=== PATIENT | male | born 1945 | race African-American/Black ===

== ENCOUNTER 2018-09-25 16:32 | Emergency (ER) | payer MEDICARE ==
[~2018-09-25] VITALS: Ht 167.6 cm; Wt 82.0 kg
[~2018-09-25 16:32] MED LIST: ACLI400A2 IH; ASPI-1079 PO; COR25 PO; FURO40TA5 PO; IPRA4AER IH; OMEP40CA34 PO; SPIR25TA6 PO
[2018-09-25 17:07] VITALS: BP 150/100
== END 2018-09-25 17:17 | disposition left against medical advice (07) ==
LOC: ER 16:32
DX: R06.02 Shortness of breath (principal); R00.0 Tachycardia, unspecified; J45.909 Unspecified asthma, uncomplicated; I11.0 Hypertensive heart disease with heart failure; I50.9 Heart failure, unspecified; E11.9 Type 2 diabetes mellitus without complications; Z79.82 Long term (current) use of aspirin; Z90.89 Acquired absence of other organs
CPT/HCPCS: 93005; 99283

== ENCOUNTER 2019-06-02 18:37 | Inpatient (IN) | payer MEDICARE ==
[~2019-06-02] VITALS: Ht 167.6 cm; Wt 68.5 kg
[~2019-06-02 18:37] MED LIST changes: -ACLI400A2 IH; +ACLI400A3 IH
[2019-06-02 20:39] LABS: CHLORIDE 105 mEq/L (98-107)
[2019-06-02 20:43] LABS: ETHANOL BLOOD < 10 mg/dL; HEMATOCRIT. 29.6 % (42.0-52.0); HEMOGLOBIN. 8.9 g/dL (14.0-18.0); MEAN CORPUSCULAR HEMOGLOBIN 19.9 pg (28.0-32.0); MEAN PLATELET VOLUME 9.5 fl (7.4-10.4); PLATELET 148 x1000/uL (130-400); RED BLOOD CELL COUNT 4.49 mill/uL (4.7-6.1); RED CELL DISTRIBUTION WIDTH 20.7 % (11.6-14.6)
[2019-06-02 20:48] LABS: CREATINE KINASE 621 IU/L (39-308)
[2019-06-02 21:56] LABS: PLATELET ESTIMATE NORMAL
[2019-06-02] MEDS ORDERED: KCL 20MEQ/100ML PREMIX 100 ML IV ONE (23:00)
[2019-06-02] MEDS ORDERED: ASPIRIN 325MG EC TABLET PO ONE (23:00)
[2019-06-02] MEDS ORDERED: POTASSIUM CHLORIDE 20MEQ TABLET SR PO ONE (23:00)
[2019-06-02 23:20] LABS: CLARITY URINE CLEAR (CLEAR); COLOR URINE YELLOW (YELLOW); KETONES URINE NEGATIVE (NEGATIVE); LEUKOCYTE ESTERASE URINE NEGATIVE (NEGATIVE); NITRITE URINE NEGATIVE (NEGATIVE); OCCULT BLOOD URINE NEGATIVE (NEGATIVE); PROTEIN URINE 1+ (NEGATIVE); SPECIFIC GRAVITY URINE 1.014 (1.005-1.030)
[2019-06-02 23:35] LABS: *AMPHETAMINES SCREEN URINE NEGATIVE (NEGATIVE); *BARBITURATES SCREEN URINE NEGATIVE (NEGATIVE); *BENZODIAZEPINES SCREEN URINE NEGATIVE (NEGATIVE); *COCAINE SCREEN URINE NEGATIVE (NEGATIVE); METHADONE URINE SCREEN NEGATIVE (NEGATIVE); OPIATES URINE SCREEN NEGATIVE (NEGATIVE); PHENCYCLIDINE URINE SCREEN NEGATIVE (NEGATIVE)
[2019-06-02 23:36] LABS: CANNABINOID URINE SCREEN NEGATIVE (NEGATIVE)
[2019-06-02] MEDS ORDERED: MAGNESIUM 2 G PREMIX 50 ML IV ONE (23:45)
[2019-06-03] MEDS ORDERED: HYDROCODONE/ACETAMINOPHEN 5/325MG TABLET PO PRN (00:45)
[2019-06-03] MEDS ORDERED: GUAIFENESIN 200MG/10ML SUGAR FREE UDC PO PRN (00:45)
[2019-06-03] MEDS ORDERED: ONDANSETRON HCL 4MG/2ML INJ IV PRN (00:45)
[2019-06-03] MEDS ORDERED: ACETAMINOPHEN 325MG TABLET PO PRN (00:45)
[2019-06-03] MEDS ORDERED: MAGNESIUM 2 G PREMIX 50 ML IV ONE (01:30)
[2019-06-03 02:30] VITALS: BP 155/100
[2019-06-03 04:00] VITALS: BP 128/83
[2019-06-03] MEDS ORDERED: DEXT 5%/0.45% NACL KCL 10MEQ/L 1,000 ML IV SCH (04:00)
[2019-06-03 08:00] VITALS: BP 149/97
[2019-06-03] MEDS: ASPIRIN 81MG EC TABLET PO SCH (09:01)
[2019-06-03] MEDS: AMLODIPINE 10MG TABLET PO SCH (09:02)
[2019-06-03] MEDS: LORAZEPAM 2MG/ML CPJ IV PRN ×2 (10:10→17:48)
[2019-06-03 12:00] VITALS: BP 155/75
[2019-06-03] MEDS ORDERED: FUROSEMIDE 40MG/4ML VIAL IVP SCH (14:15)
[2019-06-03 16:00] VITALS: BP 161/96
[2019-06-03] MEDS: CLONIDINE 0.1MG TABLET PO PRN (18:38)
[2019-06-03 19:03] LABS: HEMATOCRIT. 29.4 % (42.0-52.0); HEMOGLOBIN. 8.7 g/dL (14.0-18.0); MEAN CORPUSCULAR HEMOGLOBIN 19.5 pg (28.0-32.0); MEAN CORPUSCULAR VOLUME 65.6 fL (80.0-94.0); MEAN PLATELET VOLUME 9.6 fl (7.4-10.4); PLATELET 165 x1000/uL (130-400); RED BLOOD CELL COUNT 4.48 mill/uL (4.7-6.1); RED CELL DISTRIBUTION WIDTH 21.1 % (11.6-14.6)
[2019-06-03 19:20] LABS: CHLORIDE 109 mEq/L (98-107)
[2019-06-03 20:00] VITALS: BP 139/80
[2019-06-03] MEDS ORDERED: LACTULOSE 20G/30ML UDC PO NR (20:00)
[2019-06-03] MEDS ORDERED: POTASSIUM CHLORIDE 20MEQ TABLET SR PO NR (20:00)
[2019-06-03 20:10] LABS: PLATELET ESTIMATE NORMAL
[2019-06-03 21:25] LABS: HEPATITIS B SURFACE ANTIGEN NEGATIVE
[2019-06-03 21:55] LABS: HEPATITIS A AB IGM NEGATIVE (NEGATIVE)
[2019-06-03] MEDS: LOSARTAN POTASSIUM 25 MG TABLET PO SCH (22:37)
[2019-06-03] MEDS: CARVEDILOL 12.5MG TABLET PO SCH (22:38)
[2019-06-04] VITALS (7 sets, daily range): BP systolic 90–132; BP diastolic 48–81
[2019-06-04 07:39] LABS: CHLORIDE 114 mEq/L (98-107)
[2019-06-04 07:46] LABS: LDL CHOLESTEROL 50 mg/dL (5-100)
[2019-06-04 07:47] LABS: HDL CHOLESTEROL 38 mg/dL (40-59)
[2019-06-04] MEDS: LOSARTAN POTASSIUM 25 MG TABLET PO SCH (09:00)
[2019-06-04] MEDS: AMLODIPINE 10MG TABLET PO SCH (09:00)
[2019-06-04] MEDS: CARVEDILOL 12.5MG TABLET PO SCH ×2 (09:00→21:10)
[2019-06-04] MEDS: DOCUSATE SODIUM 250MG CAPSULE PO SCH (09:09)
[2019-06-04] MEDS: ASPIRIN 81MG EC TABLET PO SCH (09:09)
[2019-06-04] MEDS: FERROUS SULFATE 325MG TABLET PO SCH ×3 (09:09→18:10)
[2019-06-04 09:11] LABS: HEMATOCRIT. 29.9 % (42.0-52.0); HEMOGLOBIN. 8.6 g/dL (14.0-18.0); MEAN CORPUSCULAR HEMOGLOBIN 19.4 pg (28.0-32.0); MEAN CORPUSCULAR VOLUME 67.4 fL (80.0-94.0); MEAN PLATELET VOLUME 9.5 fl (7.4-10.4); RED BLOOD CELL COUNT 4.44 mill/uL (4.7-6.1); RED CELL DISTRIBUTION WIDTH 21.4 % (11.6-14.6)
[2019-06-04 09:12] LABS: PLATELET 134 x1000/uL (130-400)
[2019-06-04 12:21] LABS: PLATELET ESTIMATE NORMAL
[2019-06-04] MEDS: LORAZEPAM 2MG/ML CPJ IV PRN (21:09)
[2019-06-05] VITALS: BP 107/74
[2019-06-05] MEDS: LORAZEPAM 2MG/ML CPJ IV PRN (01:33)
[2019-06-05 04:00] VITALS: BP 123/87
[2019-06-05 08:00] VITALS: BP 158/54
[2019-06-05] MEDS: CARVEDILOL 12.5MG TABLET PO SCH ×2 (09:00→20:28)
[2019-06-05] MEDS: LOSARTAN POTASSIUM 25 MG TABLET PO SCH (09:00)
[2019-06-05] MEDS: AMLODIPINE 10MG TABLET PO SCH (09:00)
[2019-06-05] MEDS: ASPIRIN 81MG EC TABLET PO SCH (09:27)
[2019-06-05] MEDS: FERROUS SULFATE 325MG TABLET PO SCH ×3 (09:27→18:10)
[2019-06-05] MEDS: DOCUSATE SODIUM 250MG CAPSULE PO SCH (09:27)
[2019-06-05 12:00] VITALS: BP 124/83
[2019-06-05] MEDS: FUROSEMIDE 40MG/4ML VIAL IVP SCH ×2 (14:56→20:28)
[2019-06-05 16:00] VITALS: BP 129/85
[2019-06-05 20:00] VITALS: BP 121/80
[2019-06-06] VITALS: BP 131/72
[2019-06-06 04:00] VITALS: BP 130/68
[2019-06-06 07:12] LABS: BASOPHILS % 0.5 % (0.0-2.0); EOSINOPHILS % 2.1 % (0.0-5.0); HEMATOCRIT. 29.2 % (42.0-52.0); HEMOGLOBIN. 8.4 g/dL (14.0-18.0); LYMPHOCYTES % 42.4 % (20.0-50.0); MEAN CORPUSCULAR HEMOGLOBIN 19.4 pg (28.0-32.0); MEAN CORPUSCULAR VOLUME 67.2 fL (80.0-94.0); MEAN PLATELET VOLUME 9.6 fl (7.4-10.4); MONOCYTES % 7.5 % (2.0-8.0); NEUTROPHILS % 47.5 % (40.0-76.0); PLATELET 163 x1000/uL (130-400); RED BLOOD CELL COUNT 4.35 mill/uL (4.7-6.1); RED CELL DISTRIBUTION WIDTH 21.7 % (11.6-14.6)
[2019-06-06 07:39] LABS: CHLORIDE 113 mEq/L (98-107)
[2019-06-06 07:50] LABS: PHOSPHORUS 2.7 mg/dL (2.5-4.9)
[2019-06-06 08:00] VITALS: BP 168/86
[2019-06-06] MEDS: POTASSIUM CHLORIDE 20MEQ TABLET SR PO SCH (08:07)
[2019-06-06] MEDS: FUROSEMIDE 40MG/4ML VIAL IVP SCH ×2 (08:07→19:40)
[2019-06-06] MEDS: LOSARTAN POTASSIUM 25 MG TABLET PO SCH (08:07)
[2019-06-06] MEDS: ASPIRIN 81MG EC TABLET PO SCH (08:08)
[2019-06-06] MEDS: FERROUS SULFATE 325MG TABLET PO SCH ×3 (08:08→19:40)
[2019-06-06] MEDS: DOCUSATE SODIUM 250MG CAPSULE PO SCH (08:08)
[2019-06-06] MEDS: CLONIDINE 0.1MG TABLET PO PRN (08:51)
[2019-06-06] MEDS: AMLODIPINE 10MG TABLET PO SCH (08:51)
[2019-06-06] MEDS: CARVEDILOL 12.5MG TABLET PO SCH ×2 (08:51→21:00)
[2019-06-06 12:00] VITALS: BP 124/59
[2019-06-06 16:00] VITALS: BP 99/68
[2019-06-06 20:00] VITALS: BP 110/74
[2019-06-07] VITALS: BP 130/84
[2019-06-07 04:00] VITALS: BP 122/75
[2019-06-07] MEDS: FUROSEMIDE 40MG/4ML VIAL IVP SCH (06:36)
[2019-06-07 08:00] VITALS: BP 122/66
[2019-06-07] MEDS: FERROUS SULFATE 325MG TABLET PO SCH ×4 (08:10→18:10)
[2019-06-07] MEDS: ASPIRIN 81MG EC TABLET PO SCH (08:45)
[2019-06-07] MEDS: DOCUSATE SODIUM 250MG CAPSULE PO SCH (08:45)
[2019-06-07] MEDS: POTASSIUM CHLORIDE 20MEQ TABLET SR PO SCH (08:45)
[2019-06-07] MEDS: CARVEDILOL 12.5MG TABLET PO SCH ×2 (08:46→20:50)
[2019-06-07] MEDS: AMLODIPINE 10MG TABLET PO SCH (08:46)
[2019-06-07] MEDS: LOSARTAN POTASSIUM 25 MG TABLET PO SCH (09:00)
[2019-06-07 12:00] VITALS: BP_SYST 120; BP_SYST 122; BP_DIAS 66; BP_DIAS 67
[2019-06-07] MEDS: LORAZEPAM 2MG/ML CPJ IV PRN ×2 (12:37→19:33)
[2019-06-07] MEDS ORDERED: POTASSIUM CHLORIDE 20MEQ TABLET SR PO SCH (14:15)
[2019-06-07 20:00] VITALS: BP 109/69
[2019-06-08] MEDS: LORAZEPAM 2MG/ML CPJ IV PRN ×4 (04:15→21:34)
[2019-06-08 04:30] VITALS: BP 137/80
[2019-06-08 08:00] VITALS: BP 122/81
[2019-06-08] MEDS: FERROUS SULFATE 325MG TABLET PO SCH ×3 (08:10→17:17)
[2019-06-08] MEDS: DOCUSATE SODIUM 250MG CAPSULE PO SCH (08:34)
[2019-06-08] MEDS: CARVEDILOL 12.5MG TABLET PO SCH ×2 (08:34→21:33)
[2019-06-08] MEDS: FUROSEMIDE 40MG/4ML VIAL IVP SCH (08:34)
[2019-06-08] MEDS: LOSARTAN POTASSIUM 25 MG TABLET PO SCH (08:36)
[2019-06-08] MEDS: AMLODIPINE 10MG TABLET PO SCH (08:36)
[2019-06-08] MEDS: POTASSIUM CHLORIDE 20MEQ TABLET SR PO SCH (08:36)
[2019-06-08] MEDS: ASPIRIN 81MG EC TABLET PO SCH (08:36)
[2019-06-08 12:00] VITALS: BP 117/69
[2019-06-08] MEDS: RISPERIDONE 1MG TABLET PO SCH (14:00)
[2019-06-08 16:00] VITALS: BP 129/88
[2019-06-08 20:00] VITALS: BP 122/89
[2019-06-09] VITALS: BP 129/81
[2019-06-09] MEDS: LORAZEPAM 2MG/ML CPJ IV PRN ×2 (02:36→13:25)
[2019-06-09 04:00] VITALS: BP 123/76
[2019-06-09 08:00] VITALS: BP 117/76
[2019-06-09] MEDS: FERROUS SULFATE 325MG TABLET PO SCH ×3 (08:10→17:27)
[2019-06-09] MEDS: CARVEDILOL 12.5MG TABLET PO SCH ×2 (08:26→20:48)
[2019-06-09] MEDS: DOCUSATE SODIUM 250MG CAPSULE PO SCH (08:26)
[2019-06-09] MEDS: LOSARTAN POTASSIUM 50 MG TABLET PO SCH (08:27)
[2019-06-09] MEDS: RISPERIDONE 1MG TABLET PO SCH ×3 (08:27→16:39)
[2019-06-09] MEDS: ASPIRIN 81MG EC TABLET PO SCH (08:27)
[2019-06-09] MEDS: AMLODIPINE 10MG TABLET PO SCH (08:27)
[2019-06-09] MEDS: POTASSIUM CHLORIDE 20MEQ TABLET SR PO SCH (08:28)
[2019-06-09] MEDS: FUROSEMIDE 40MG/4ML VIAL IVP SCH (08:35)
[2019-06-09 12:30] VITALS: BP 133/87
[2019-06-09] MEDS ORDERED: POTASSIUM CHLORIDE 20MEQ TABLET SR PO SCH (13:30)
[2019-06-09] MEDS: MAGNESIUM GLUCONATE 500MG TABLET PO SCH (15:00)
[2019-06-09 16:00] VITALS: BP 127/82
[2019-06-09 20:00] VITALS: BP 115/63
[2019-06-09] MEDS: AMIODARONE HCL 200 MG TABLET PO SCH (20:49)
[2019-06-09 21:04] LABS: CHLORIDE 110 mEq/L (98-107)
[2019-06-09 21:07] LABS: HEMATOCRIT. 33.7 % (42.0-52.0); HEMOGLOBIN. 9.8 g/dL (14.0-18.0); MEAN CORPUSCULAR HEMOGLOBIN 19.9 pg (28.0-32.0); MEAN CORPUSCULAR VOLUME 68.2 fL (80.0-94.0); MEAN PLATELET VOLUME 9.9 fl (7.4-10.4); PLATELET 225 x1000/uL (130-400); RED BLOOD CELL COUNT 4.94 mill/uL (4.7-6.1); RED CELL DISTRIBUTION WIDTH 22.5 % (11.6-14.6)
[2019-06-09 21:33] LABS: NUCLEATED RED BLOOD CELLS 1 /100 WBC; PLATELET ESTIMATE NORMAL
[2019-06-10] VITALS: BP 114/66
[2019-06-10 04:00] VITALS: BP 102/63
[2019-06-10 08:00] VITALS: BP 103/68
[2019-06-10] MEDS: CARVEDILOL 12.5MG TABLET PO SCH ×2 (09:00→20:55)
[2019-06-10] MEDS: LOSARTAN POTASSIUM 50 MG TABLET PO SCH (09:00)
[2019-06-10] MEDS: AMLODIPINE 10MG TABLET PO SCH (09:00)
[2019-06-10] MEDS: MAGNESIUM GLUCONATE 500MG TABLET PO SCH (09:00)
[2019-06-10] MEDS: FUROSEMIDE 40MG/4ML VIAL IVP SCH (09:15)
[2019-06-10] MEDS: ASPIRIN 81MG EC TABLET PO SCH (09:15)
[2019-06-10] MEDS: RISPERIDONE 1MG TABLET PO SCH ×2 (09:15→17:45)
[2019-06-10] MEDS: DOCUSATE SODIUM 250MG CAPSULE PO SCH (09:15)
[2019-06-10] MEDS: FERROUS SULFATE 325MG TABLET PO SCH ×3 (09:15→17:45)
[2019-06-10] MEDS: POTASSIUM CHLORIDE 20MEQ TABLET SR PO SCH (09:16)
[2019-06-10] MEDS: AMIODARONE HCL 200 MG TABLET PO SCH ×2 (09:16→20:55)
[2019-06-10 12:00] VITALS: BP 103/56
[2019-06-10 16:00] VITALS: BP 129/80
[2019-06-10 20:00] VITALS: BP 112/78
[2019-06-11] VITALS: BP 101/63
[2019-06-11 04:00] VITALS: BP 97/53
[2019-06-11 08:00] VITALS: BP 103/69
[2019-06-11] MEDS: ASPIRIN 81MG EC TABLET PO SCH (08:47)
[2019-06-11] MEDS: RISPERIDONE 1MG TABLET PO SCH ×2 (08:47→17:42)
[2019-06-11] MEDS: DOCUSATE SODIUM 250MG CAPSULE PO SCH (08:47)
[2019-06-11] MEDS: POTASSIUM CHLORIDE 20MEQ TABLET SR PO SCH (08:47)
[2019-06-11] MEDS: FERROUS SULFATE 325MG TABLET PO SCH ×3 (08:47→17:42)
[2019-06-11] MEDS: FUROSEMIDE 40MG/4ML VIAL IVP SCH (08:47)
[2019-06-11] MEDS: AMIODARONE HCL 200 MG TABLET PO SCH ×2 (08:47→21:12)
[2019-06-11] MEDS: AMLODIPINE 10MG TABLET PO SCH (08:47)
[2019-06-11] MEDS: CARVEDILOL 12.5MG TABLET PO SCH ×2 (08:48→21:12)
[2019-06-11] MEDS: LOSARTAN POTASSIUM 50 MG TABLET PO SCH (08:48)
[2019-06-11] MEDS: MAGNESIUM GLUCONATE 500MG TABLET PO SCH (09:00)
[2019-06-11 12:00] VITALS: BP 128/73
[2019-06-11 16:00] VITALS: BP 153/84
[2019-06-11] MEDS: FOLIC ACID 1MG TABLET PO SCH (17:42)
[2019-06-11] MEDS: THIAMINE HCL 100MG TABLET PO SCH (17:42)
[2019-06-11] MEDS: MULTIVITAMINS,THER W-MINERALS TABLET PO SCH (17:42)
[2019-06-11 20:37] VITALS: BP 133/95
[2019-06-11 22:42] LABS: T4 FREE 1.31 ng/dL (0.76-1.46)
[2019-06-12 00:34] VITALS: BP 147/91
[2019-06-12 04:00] VITALS: BP 152/84
[2019-06-12 08:00] VITALS: BP 163/98
[2019-06-12] MEDS: FERROUS SULFATE 325MG TABLET PO SCH ×3 (08:10→17:22)
[2019-06-12] MEDS: CARVEDILOL 12.5MG TABLET PO SCH ×2 (09:00→21:56)
[2019-06-12] MEDS: RISPERIDONE 1MG TABLET PO SCH ×2 (09:00→17:00)
[2019-06-12] MEDS: MULTIVITAMINS,THER W-MINERALS TABLET PO SCH (09:00)
[2019-06-12] MEDS: POTASSIUM CHLORIDE 20MEQ TABLET SR PO SCH (09:00)
[2019-06-12] MEDS: AMIODARONE HCL 200 MG TABLET PO SCH ×2 (09:00→21:56)
[2019-06-12] MEDS: AMLODIPINE 10MG TABLET PO SCH (09:00)
[2019-06-12] MEDS: THIAMINE HCL 100MG TABLET PO SCH (09:00)
[2019-06-12] MEDS: LOSARTAN POTASSIUM 50 MG TABLET PO SCH (09:00)
[2019-06-12] MEDS: FOLIC ACID 1MG TABLET PO SCH (09:00)
[2019-06-12] MEDS: ASPIRIN 81MG EC TABLET PO SCH (09:00)
[2019-06-12] MEDS: DOCUSATE SODIUM 250MG CAPSULE PO SCH (09:00)
[2019-06-12] MEDS: FUROSEMIDE 40MG/4ML VIAL IVP SCH (09:34)
[2019-06-12 20:00] VITALS: BP 128/65
[2019-06-12] MEDS: LORAZEPAM 2MG/ML CPJ IV PRN (20:39)
[2019-06-13] VITALS: BP 107/73
[2019-06-13] MEDS: LORAZEPAM 2MG/ML CPJ IV PRN ×3 (01:17→16:13)
[2019-06-13 04:00] VITALS: BP 128/86
[2019-06-13] MEDS: LORAZEPAM 2MG/ML CPJ IM PRN ×2 (07:25→20:31)
[2019-06-13] MEDS: FERROUS SULFATE 325MG TABLET PO SCH ×3 (08:10→18:10)
[2019-06-13 08:15] VITALS: BP 124/84
[2019-06-13] MEDS: CARVEDILOL 12.5MG TABLET PO SCH ×2 (09:00→21:00)
[2019-06-13] MEDS: MULTIVITAMINS,THER W-MINERALS TABLET PO SCH (09:00)
[2019-06-13] MEDS: THIAMINE HCL 100MG TABLET PO SCH (09:00)
[2019-06-13] MEDS: FOLIC ACID 1MG TABLET PO SCH (09:00)
[2019-06-13] MEDS: MAGNESIUM GLUCONATE 500MG TABLET PO SCH (09:00)
[2019-06-13] MEDS: LOSARTAN POTASSIUM 50 MG TABLET PO SCH (09:00)
[2019-06-13] MEDS: POTASSIUM CHLORIDE 20MEQ TABLET SR PO SCH (09:00)
[2019-06-13] MEDS: DOCUSATE SODIUM 250MG CAPSULE PO SCH (09:00)
[2019-06-13] MEDS: FUROSEMIDE 40MG/4ML VIAL IVP SCH (09:00)
[2019-06-13] MEDS: RISPERIDONE 1MG TABLET PO SCH ×2 (09:00→17:00)
[2019-06-13] MEDS: AMIODARONE HCL 200 MG TABLET PO SCH ×2 (09:00→11:15)
[2019-06-13] MEDS: ASPIRIN 81MG EC TABLET PO SCH (09:00)
[2019-06-13] MEDS: AMLODIPINE 10MG TABLET PO SCH (09:00)
[2019-06-13 11:49] VITALS: BP 136/60
[2019-06-13 16:19] VITALS: BP 118/79
[2019-06-13 20:00] VITALS: BP 126/85
[2019-06-14] VITALS: BP 145/89
[2019-06-14 04:00] VITALS: BP 119/78
[2019-06-14] MEDS: LORAZEPAM 2MG/ML CPJ IM PRN ×2 (05:11→09:17)
[2019-06-14 07:58] VITALS: BP 121/78
[2019-06-14] MEDS: AMIODARONE HCL 200 MG TABLET PO SCH (08:49)
[2019-06-14] MEDS: FOLIC ACID 1MG TABLET PO SCH (08:49)
[2019-06-14] MEDS: DOCUSATE SODIUM 100MG CAPSULE PO PRN (08:49)
[2019-06-14] MEDS: RISPERIDONE 1MG TABLET PO SCH ×2 (08:49→18:44)
[2019-06-14] MEDS: LOSARTAN POTASSIUM 50 MG TABLET PO SCH (08:50)
[2019-06-14] MEDS: POTASSIUM CHLORIDE 20MEQ TABLET SR PO SCH (08:50)
[2019-06-14] MEDS: FUROSEMIDE 40MG/4ML VIAL IVP SCH (08:50)
[2019-06-14] MEDS: MULTIVITAMINS,THER W-MINERALS TABLET PO SCH (08:50)
[2019-06-14] MEDS: MAGNESIUM GLUCONATE 500MG TABLET PO SCH ×3 (08:50→08:53)
[2019-06-14] MEDS: ASPIRIN 81MG EC TABLET PO SCH (08:50)
[2019-06-14] MEDS: FERROUS SULFATE 325MG TABLET PO SCH ×3 (08:50→18:44)
[2019-06-14] MEDS: DOCUSATE SODIUM 250MG CAPSULE PO SCH (09:00)
[2019-06-14] MEDS: CARVEDILOL 12.5MG TABLET PO SCH ×2 (09:00→20:26)
[2019-06-14] MEDS: THIAMINE HCL 100MG TABLET PO SCH (09:00)
[2019-06-14] MEDS: AMLODIPINE 10MG TABLET PO SCH (09:00)
[2019-06-14 11:52] VITALS: BP 120/75
[2019-06-14 16:15] VITALS: BP 111/57
[2019-06-14 20:00] VITALS: BP 91/59
[2019-06-15] VITALS: BP 101/60
[2019-06-15 04:00] VITALS: BP 105/71
[2019-06-15 08:00] VITALS: BP 137/76
[2019-06-15] MEDS: FERROUS SULFATE 325MG TABLET PO SCH ×3 (08:33→18:10)
[2019-06-15] MEDS: RISPERIDONE 1MG TABLET PO SCH ×2 (08:33→17:00)
[2019-06-15] MEDS: FOLIC ACID 1MG TABLET PO SCH (08:34)
[2019-06-15] MEDS: AMLODIPINE 10MG TABLET PO SCH (08:34)
[2019-06-15] MEDS: MAGNESIUM GLUCONATE 500MG TABLET PO SCH (08:34)
[2019-06-15] MEDS: POTASSIUM CHLORIDE 20MEQ TABLET SR PO SCH (08:34)
[2019-06-15] MEDS: ASPIRIN 81MG EC TABLET PO SCH (08:34)
[2019-06-15] MEDS: DOCUSATE SODIUM 250MG CAPSULE PO SCH (08:34)
[2019-06-15] MEDS: MULTIVITAMINS,THER W-MINERALS TABLET PO SCH (08:35)
[2019-06-15] MEDS: AMIODARONE HCL 200 MG TABLET PO SCH (08:36)
[2019-06-15] MEDS: THIAMINE HCL 100MG TABLET PO SCH (08:37)
[2019-06-15] MEDS: FUROSEMIDE 40MG/4ML VIAL IVP SCH (08:38)
[2019-06-15] MEDS: CARVEDILOL 12.5MG TABLET PO SCH ×2 (09:00→21:00)
[2019-06-15] MEDS: LOSARTAN POTASSIUM 50 MG TABLET PO SCH (09:00)
[2019-06-15 12:00] VITALS: BP 157/82
[2019-06-15 16:00] VITALS: BP 103/69
[2019-06-15 20:00] VITALS: BP 101/55
[2019-06-16] VITALS: BP 106/76
[2019-06-16 04:00] VITALS: BP 133/88
[2019-06-16 08:00] VITALS: BP 136/86
[2019-06-16] MEDS: LOSARTAN POTASSIUM 50 MG TABLET PO SCH (09:00)
[2019-06-16] MEDS: ASPIRIN 81MG EC TABLET PO SCH (09:36)
[2019-06-16] MEDS: FERROUS SULFATE 325MG TABLET PO SCH ×3 (09:36→17:10)
[2019-06-16] MEDS: DOCUSATE SODIUM 250MG CAPSULE PO SCH (09:36)
[2019-06-16] MEDS: THIAMINE HCL 100MG TABLET PO SCH (09:36)
[2019-06-16] MEDS: RISPERIDONE 1MG TABLET PO SCH ×2 (09:36→16:43)
[2019-06-16] MEDS: FUROSEMIDE 40MG/4ML VIAL IVP SCH (09:36)
[2019-06-16] MEDS: MULTIVITAMINS,THER W-MINERALS TABLET PO SCH (09:36)
[2019-06-16] MEDS: AMLODIPINE 10MG TABLET PO SCH (09:36)
[2019-06-16] MEDS: POTASSIUM CHLORIDE 20MEQ TABLET SR PO SCH (09:36)
[2019-06-16] MEDS: CARVEDILOL 12.5MG TABLET PO SCH ×2 (09:37→20:05)
[2019-06-16] MEDS: MAGNESIUM GLUCONATE 500MG TABLET PO SCH (09:37)
[2019-06-16] MEDS: FOLIC ACID 1MG TABLET PO SCH (09:37)
[2019-06-16] MEDS: AMIODARONE HCL 200 MG TABLET PO SCH (09:37)
[2019-06-16 12:00] VITALS: BP 128/79
[2019-06-16 13:38] LABS: HEMATOCRIT. 38.6 % (42.0-52.0); HEMOGLOBIN. 11.3 g/dL (14.0-18.0); MEAN CORPUSCULAR HEMOGLOBIN 20.3 pg (28.0-32.0); MEAN CORPUSCULAR VOLUME 68.9 fL (80.0-94.0); MEAN PLATELET VOLUME 9.2 fl (7.4-10.4); PLATELET 213 x1000/uL (130-400); RED BLOOD CELL COUNT 5.59 mill/uL (4.7-6.1)
[2019-06-16 13:47] LABS: CHLORIDE 110 mEq/L (98-107)
[2019-06-16 14:44] LABS: PLATELET ESTIMATE NORMAL
[2019-06-16 16:00] VITALS: BP 105/66
[2019-06-16 20:00] VITALS: BP 113/72
[2019-06-17] VITALS: BP 110/66
[2019-06-17 04:00] VITALS: BP 105/93
[2019-06-17] MEDS: LORAZEPAM 2MG/ML CPJ IM PRN (05:23)
[2019-06-17 08:00] VITALS: BP 106/59
[2019-06-17] MEDS: POTASSIUM CHLORIDE 20MEQ TABLET SR PO SCH (08:49)
[2019-06-17] MEDS: ASPIRIN 81MG EC TABLET PO SCH (08:49)
[2019-06-17] MEDS: MULTIVITAMINS,THER W-MINERALS TABLET PO SCH (08:49)
[2019-06-17] MEDS: MAGNESIUM GLUCONATE 500MG TABLET PO SCH (08:49)
[2019-06-17] MEDS: THIAMINE HCL 100MG TABLET PO SCH (08:50)
[2019-06-17] MEDS: FOLIC ACID 1MG TABLET PO SCH (08:50)
[2019-06-17] MEDS: FUROSEMIDE 40MG/4ML VIAL IVP SCH (08:50)
[2019-06-17] MEDS: FERROUS SULFATE 325MG TABLET PO SCH ×3 (08:50→18:09)
[2019-06-17] MEDS: LOSARTAN POTASSIUM 50 MG TABLET PO SCH (08:54)
[2019-06-17] MEDS: CARVEDILOL 12.5MG TABLET PO SCH ×2 (08:55→21:02)
[2019-06-17] MEDS: AMLODIPINE 10MG TABLET PO SCH (08:56)
[2019-06-17] MEDS: AMIODARONE HCL 200 MG TABLET PO SCH (08:57)
[2019-06-17] MEDS: DOCUSATE SODIUM 250MG CAPSULE PO SCH (09:00)
[2019-06-17] MEDS: RISPERIDONE 1MG TABLET PO SCH ×2 (09:17→17:34)
[2019-06-17 12:00] VITALS: BP 110/67
[2019-06-17 16:00] VITALS: BP 114/74
[2019-06-17 20:00] VITALS: BP 118/79
[2019-06-18] VITALS (7 sets, daily range): BP systolic 96–120; BP diastolic 55–80
[2019-06-18] MEDS: LORAZEPAM 2MG/ML CPJ IV PRN (00:25)
[2019-06-18] MEDS: FUROSEMIDE 40MG/4ML VIAL IVP SCH (08:43)
[2019-06-18] MEDS: FOLIC ACID 1MG TABLET PO SCH (08:43)
[2019-06-18] MEDS: DOCUSATE SODIUM 100MG CAPSULE PO PRN (08:43)
[2019-06-18] MEDS: AMIODARONE HCL 200 MG TABLET PO SCH (08:44)
[2019-06-18] MEDS: FERROUS SULFATE 325MG TABLET PO SCH ×3 (08:44→18:40)
[2019-06-18] MEDS: MAGNESIUM GLUCONATE 500MG TABLET PO SCH (08:44)
[2019-06-18] MEDS: MULTIVITAMINS,THER W-MINERALS TABLET PO SCH (08:44)
[2019-06-18] MEDS: ASPIRIN 81MG EC TABLET PO SCH (08:44)
[2019-06-18] MEDS: RISPERIDONE 1MG TABLET PO SCH ×2 (08:44→17:42)
[2019-06-18] MEDS: POTASSIUM CHLORIDE 20MEQ TABLET SR PO SCH (08:44)
[2019-06-18] MEDS: DOCUSATE SODIUM 250MG CAPSULE PO SCH (08:44)
[2019-06-18] MEDS: LOSARTAN POTASSIUM 50 MG TABLET PO SCH (08:45)
[2019-06-18] MEDS: CARVEDILOL 12.5MG TABLET PO SCH (08:45)
[2019-06-18] MEDS: AMLODIPINE 10MG TABLET PO SCH (08:45)
[2019-06-18] MEDS: THIAMINE HCL 100MG TABLET PO SCH (08:49)
[2019-06-18] MEDS ORDERED: LORAZEPAM 2MG/ML CPJ IV NR (17:30)
== END 2019-06-18 20:20 | DRG 91 ==
LOC: ER 18:37 → EDBEDREQ 06-03 00:19 → 7WST 06-03 00:40 → EDBEDREQTM 06-03 00:42 → ENRESERV 06-03 00:55 → EDBEDREQ 06-03 02:13
PROVIDERS: ADMIT Internal Medicine; ATTEND Internal Medicine
DX: G92 Toxic encephalopathy (principal); E43 Unspecified severe protein-calorie malnutrition; I50.23 Acute on chronic systolic (congestive) heart failure; M62.82 Rhabdomyolysis; I47.1 Supraventricular tachycardia; I42.9 Cardiomyopathy, unspecified; I11.0 Hypertensive heart disease with heart failure; E87.6 Hypokalemia; D64.9 Anemia, unspecified; S80.212A Abrasion, left knee, initial encounter; X58.XXXA Exposure to other specified factors, initial encounter; R26.9 Unspecified abnormalities of gait and mobility; R20.0 Anesthesia of skin; F99 Mental disorder, not otherwise specified; J45.909 Unspecified asthma, uncomplicated; E11.9 Type 2 diabetes mellitus without complications; I27.20 Pulmonary hypertension, unspecified; Z87.11 Personal history of peptic ulcer disease; Z78.1 Physical restraint status; Z79.82 Long term (current) use of aspirin; Z79.899 Other long term (current) drug therapy; Z68.24 Body mass index [BMI] 24.0-24.9, adult; Y93.89 Activity, other specified; Y92.89 Other specified places as the place of occurrence of the external cause; Y99.8 Other external cause status
CPT/HCPCS: 36415; 70551; 80048; 80061; 80305; 80307; 80320; 80329; 81003; 82140; 82550; 82607; 82746; 82962; 83036; 83735; 83880; 84100; 84134; 84439; 84443; 84481; 84484; 86705; 86709; 86803; 87340; 93005; 93306; 99285; C1893; J1940; J2060; J3475; J3480; G0480